=== PATIENT | male | born 2000 | race Caucasian/White ===

== ENCOUNTER 2019-12-15 00:34 | Emergency (ER) | payer BC ==
[2019-12-15] MEDS ORDERED: Mag-Al 1200 mg/1200 mg/30 ML UDCUP ONE (01:02)
[2019-12-15] MEDS ORDERED: Lidocaine Viscous Sol 2% 15 ml UD Cup ONE (01:02)
[2019-12-15 01:19] LABS: Hemoglobin 15.6 g/dL (14.0-18.0); Mean Corpuscular HGB CONC 34.8 g/dL (32.0-36.0); Mean Corpuscular Hemoglobin 31.3 pg (25.0-35.0); Mean Corpuscular Volume 89.9 fL (78.0-98.0); Mean Platelet Volume 7.5 fL (7.4-10.4); Platelet Count 356 thou/uL (130-400); RBC Distribution Width 11.3 % (11.5-14.5); Red Blood Cell (RBC) Count 4.99 mill/uL (4.00-5.20); White Blood Cell (WBC) Count 9.6 thou/uL (4.8-10.8)
[2019-12-15 01:27] LABS: Eosinophils 1 % (0-10); Lymphocytes 60 % (28-48); MDiff Complete? YES; Monocytes 6 % (0-4); Neutrophil 33 % (31-61); Platelet Morphology Comment Appears Adequate
[2019-12-15 01:31] LABS: ALT (SGPT) 30 U/L (8-55); AST (SGOT) 41 U/L (5-34); Alkaline Phosphatase 118 U/L (50-130); Anion Gap 14 mmol/L (10-20); BUN (Urea Nitrogen) 16 mg/dL (8.9-20.6); Bilirubin, Total 0.6 mg/dL (0.2-1.2); Calc. Creatinine Clearance 0 mL/min (70-130); Calcium 9.8 mg/dL (7.8-10.44); Carbon Dioxide 27 mmol/L (22-29); Chloride 103 mmol/L (98-107); Estimated GFR-MDRD Greater than 90; Glucose 112 mg/dL (70-105); Lipase 23 U/L (8-78); Potassium 3.4 mmol/L (3.5-5.1); Sodium 141 mmol/L (136-145)
--- NOTE | 2019-12-15 09:06 | ULT ---
PRELIMINARY REPORT/[facility]/EMERGENCY AFTER HOURS PROCEDURE: EXAM: US Abdomen Limited, Right Upper Quadrant. CLINICAL HISTORY: RUQ pain tonight, N/V TECHNIQUE: Real-time ultrasound of the right upper quadrant with image documentation. COMPARISON: None provided. FINDINGS: LIVER: Measures 14.3 cm and demonstrates fatty infiltration. GALLBLADDER: No gallstone. No wall thickening. No pericholecystic fluid. Gallbladder sludge is noted COMMON BILE DUCT: No dilation. Measures 2.5 mm PANCREAS: Partially obscured by overlying bowel gas. RIGHT KIDNEY: Unremarkable. No hydronephrosis. Measures 10.5 cm IMPRESSION: Gallbladder sludge with no evidence for acute cholecystitis ELECTRONICALLY SIGNED BY: David Charlton MD Dec 15, 2019 1:55:45 AM CDT This report is intended for review by the ordering physician only, in accordance of law. If you recei ve this report in error, please call [facility] at [phone]. FINAL REPORT: RIGHT UPPER QUADRANT ULTRASOUND: I agree with the preliminary report provided. There is mild fatty infiltration with gallbladder slud ge without sonographic evidence of acute cholecystitis. POS:
== END 2019-12-15 02:25 | disposition home or self-care (01) ==
LOC: ERS 00:34
DX: R10.11 Right upper quadrant pain (principal); R79.89 Other specified abnormal findings of blood chemistry; R11.2 Nausea with vomiting, unspecified; F32.9 Major depressive disorder, single episode, unspecified; Z79.899 Other long term (current) drug therapy
CPT/HCPCS: 76705; 80053; 83690; 85025